=== PATIENT | male | born 1950 ===

== ENCOUNTER → 2021-08-09 | Outpatient (CLI) | payer OTHER ==
[~2021-08-09] VITALS: Ht 172.7 cm; Wt 67.1 kg
[2021-08-09 08:58] VITALS: BP 121/66
--- NOTE | 2021-08-09 09:15 | NUR ---
Pain Clinic Assessment: 1. History of Osteoarthritis: LEFT WRIST BACK History of Rheumatoid Arthritis: 2. Height: 5 ft. 8 in. 172.7 cm. Weight: 148.0 lb. oz. 67.132 kg. Patient's BMI: 22.5 3. Vital Signs: BP: 121/66 Pulse: 52 Resp: 14 Temp: 02 Sat: 98 ECG Mon: 4. Pain Intensity: 4 5. Fall Risk: Dizziness: N Needs help standing or walking: N Fallen in the last 3 months: N Fall risk comments: 6. Patient on Blood Thinner: None 7. History of Hypertension: N 8. Opioid Therapy greater than 6 weeks: Opiate Contract Signed: 9. Risk Assessment Tool Provided: 0 LOW RISK 10. Functional Assessment Tool: 56/ 11. Recreational Drug Use: Never Drug Type: Tobacco Use: Former Smoker Tobacco Type: Amount or Packs/day: How Many Years: Alcohol Use: Yes Frequency: Weekly Quant: 1-2
== END ==
LOC: PAIN 07:45
PROVIDERS: ATTEND Anesthesiology Pain Medicine
DX: M25.551 Pain in right hip (principal); M54.50 Low back pain, unspecified; R10.30 Lower abdominal pain, unspecified; M79.659 Pain in unspecified thigh

== ENCOUNTER → 2021-08-23 | Outpatient (CLI) | payer OTHER ==
[~2021-08-23] VITALS: Ht 172.7 cm; Wt 70.1 kg
[~2021-08-23] MED LIST: ALDARA1 EACH TP; RELAFEN500 M1 PO
--- NOTE | ~2021-08-23 | HPC ---
[facility] [place] [place] [address] [place] [address] PAIN MANAGEMENT CONSULTATION Name: VITO BENEDICT Room #: REG KATY Michelle#: [id number] Admission: 08/23/21 Attend Phys: Sebastien Trujillo DO Discharge: Date of : 48 Report #: [id number] THIS REPORT FOR: cc: Jose Carlos Begum MD, Paul M. MD Johnson, James E. DO ~ cc: Hay Mcintosh MD DATE OF SERVICE: 08/23/2021 REFERRING PHYSICIAN: Dr. Hay Mcintosh. CHIEF COMPLAINT: Right upper buttock and anterior thigh pain. HISTORY OF PRESENT ILLNESS: As you know, the patient is a pleasant 71-year-old male with longstanding history of ongoing right buttock and anterior thigh pain. The patient indicates pain began in 2006. We saw the patient in consultation per the request of his neurosurgeon, Dr. Hay Mcintosh to discuss SI joint dysfunction and possible SI joint injections and treatment to address chronic sacroiliac joint pain. On initial visit, we discussed with the patient that pelvic manipulation is usually the gold standard of treatment. This has to be done before injections or any type of therapeutic options were provided, if the joint is maintained inappropriate position, no shock medication or treatment will be of benefit. The joint has to be manipulated back into position as much as possible to be able to address these symptoms comfortably. He was sent to undergo pelvic manipulation and MyoCore. The patient chose to follow up with his previous physical therapist. The patient was advised by the physical therapist. After the evaluation that they recommend an injection prior to the PT and the patient was referred back to our clinic. He comes today with pain level of 6/10. There has been no injury, no trauma, no changes in medication management since our visit of 08/09/2021. ALLERGIES: CIPROFLOXACIN, METRONIDAZOLE, AND MELOXICAM. CURRENT MEDICATIONS: See chart. SOCIAL HISTORY: The patient denies tobacco, IV or illicit drug use. Admits to 1-2 alcohol beverages per week. He is an information technology contractor working, not receiving workmen's compensation, unaccompanied today. IMAGING: No new imaging is available. PQRS: The patient has known arthritic changes of lumbar spine and left wrist. He denies rheumatoid arthritis. He is placing pain today at 6/10. Not a fall risk, has not had a fall in last 3 months. He is not on blood thinners nor is he treated for hypertension. He is on no opioids, has a low opioid addiction potential based on our assessment tool. Pain impact remains elevated at 60/70, [address] [address] PAIN MANAGEMENT CONSULTATION Name: VITO BENEDICT Room #: [facility] [id number] Admission: 08/23/21 Attend Phys: Sebastien Trujillo DO Discharge: Date of : 48 Report #: [id number] severe interference of daily activities secondary to pain. PHYSICAL EXAMINATION: VITAL SIGNS: Blood pressure 127/77, pulse 57, respiratory rate 18 and unlabored. The patient is 96% on room air. Height 5 feet 8 inches tall, weight 154.6 pounds, BMI calculated 23.5. GENERAL: Well-developed, well-nourished, well-hydrated 71-year-old male appearing stated age, pain is rated today 6/10. HEENT: Normocephalic, atraumatic. Pupils are round. He is wearing a mask in compliance with COVID-19 regulations. EXTREMITIES: Show no clubbing, no cyanosis, no edema. MUSCULOSKELETAL: Lower extremity strength once again equal and symmetrical 5/5. There is no change in the muscle bulk and tone when comparing lower extremities. He is intact to light touch from L1 through S2 dermatomes. Deep tendon reflexes remain symmetrical at the patella and Achilles. Seated straight leg raising negative. Supine straight leg raising negative. Cristian's test is positive for right sacroiliac joint dysfunction. Thigh thrust maneuver positive on the right. Lorenzo's test is positive on the right. Modified Gaenslen is positive on the right. ASSESSMENT: 1. Right sacroiliac joint pain. 2. Right sacroiliac joint dysfunction. 3. Chronic intractable pain. PLAN: 1. The patient returns today in followup visit indicating that he has submitted to one evaluation session of physical therapy session with his current physical therapist. He was advised by the physical therapist, they recommend that he undergo an SI joint injection before continuing physical therapy. We do not recommend this at this time. We have a limited amount of SI joint injections that can be provided for Medicare patients by injecting the patient this early in the series without having the SI joint manipulated into anatomical position, we would be only providing temporary improvement. I understand that physical therapy may generate some increasing pain in the patient and he is willing to accept that understanding that once the SI joint has been manipulated back into position and the leg length discrepancy has been resolved then the injection would be much more beneficial and provide a longer term benefit. The patient is agreeable with this plan. He will return to see his physical therapist on Saturday for physical therapy. We recommend at least 5-6 sessions once he is beginning to see improvement in symptoms with the physical therapy, we would then assume that the SI joint has been manipulated back into anatomical position and shot would be recommended. The patient is agreeable with that plan. 2. We have provided the patient with a prescription of nabumetone 500 mg dose. This will help with any inflammatory processes he may be experiencing with the manipulation of the pelvis and the SI joint itself. He will take 1 tab in the [facility] [address] [place] [address] PAIN MANAGEMENT CONSULTATION Name: CAROLVITO GASCA Room #: REG KATY Martinez#: [id number] Admission: 08/23/21 Attend Phys: Sebastien Trujillo DO Discharge: Date of : 48 Report #: [id number] morning, 1 tab at dinner time. He was given #60 tablets with no refills. The patient was advised to watch for dyspepsia with the use of this medication, increasing blood pressure or lower extremity edema. If he notes any side effects, discontinue immediately. 3. I will see the patient back in followup visit once he has completed at least 5 sessions of physical therapy, once that has been completed, and he is noticing improvement in symptoms, we would then recommend the SI joint injection. The patient has longstanding sacroiliac joint pain since 2006. This is not an acute issue and should be treated with manipulation of the pelvis initially, then moving forward with injections to obtain the greatest fact given the limitations of SI joint injections that we have in a 6-month period. The patient is agreeable with this plan. By: [id number] Sebastien Trujillo DO /nt
[2021-08-23 08:01] VITALS: BP 127/77
--- NOTE | 2021-08-23 08:07 | NUR ---
Pain Clinic Assessment: 1. History of Osteoarthritis: LEFT WRIST BACK History of Rheumatoid Arthritis: 2. Height: 5 ft. 8 in. 172.7 cm. Weight: 154.6 lb. oz. 70.126 kg. Patient's BMI: 23.5 3. Vital Signs: BP: 127/77 Pulse: 57 Resp: 18 Temp: 02 Sat: 96 ECG Mon: 4. Pain Intensity: 6 5. Fall Risk: Dizziness: N Needs help standing or walking: N Fallen in the last 3 months: N Fall risk comments: 6. Patient on Blood Thinner: None 7. History of Hypertension: N 8. Opioid Therapy greater than 6 weeks: Opiate Contract Signed: 9. Risk Assessment Tool Provided: 0 LOW RISK 10. Functional Assessment Tool: 11. Recreational Drug Use: Never Drug Type: Tobacco Use: Former Smoker Tobacco Type: Amount or Packs/day: How Many Years: Alcohol Use: Yes Frequency: Quant:
== END ==
LOC: PAIN 07:37
PROVIDERS: ATTEND Anesthesiology Pain Medicine
DX: M53.3 Sacrococcygeal disorders, not elsewhere classified (principal); G89.29 Other chronic pain; Z79.899 Other long term (current) drug therapy; Z88.8 Allergy status to other drugs, medicaments and biological substances